=== PATIENT | male | born 1960 | race Caucasian/White ===

== ENCOUNTER 2018-01-24 07:12 | Outpatient (CLI) | payer MEDICARE ==
--- NOTE | 2018-01-24 09:37 | ULT ---
ULTRASOUND LIVER WITH DOPPLER: HISTORY: Hepatitis B. FINDINGS: The liver demonstrates increased echogenicity concerning for fatty infiltration. No focal mass or in trahepatic ductal dilatation is seen. No gallstones or gallbladder wall thickening, or pericholecyst ic fluid is identified. The pancreas is not visualized due to overlying bowel gas. The common duct measures 4 mm in diameter. The spleen measures 11.6 cm in length and is normal. No free fluid is se en in the right upper quadrant. There is normal flow and spectral waveforms in the hepatic, portal, and splenic vasculature. IMPRESSION: 1. Fatty liver. 2. No evidence of cholelithiasis. POS: [facility]
== END 2018-01-24 07:13 | disposition home or self-care (01) ==
LOC: ULT 07:12
PROVIDERS: ATTEND Internal Medicine Gastroenterology
DX: B19.10 Unspecified viral hepatitis B without hepatic coma (principal); K76.0 Fatty (change of) liver, not elsewhere classified
CPT/HCPCS: 76705

== ENCOUNTER 2021-06-18 14:40 | Outpatient (CLI) | payer MEDICARE | END 2021-06-18 14:41 | disposition home or self-care (01) | LOC: BICULT 14:40 | PROVIDERS: ATTEND Internal Medicine Infectious Disease | DX: B18.1 Chronic viral hepatitis B without delta-agent (principal); K76.0 Fatty (change of) liver, not elsewhere classified | CPT/HCPCS: 76705 ==

== ENCOUNTER 2022-07-14 10:39 | Outpatient (CLI) | payer MEDICARE | END 2022-07-14 10:40 | disposition home or self-care (01) | LOC: BICULT 10:39 | PROVIDERS: ATTEND Physician Assistant Medical | DX: R13.10 Dysphagia, unspecified (principal); R10.13 Epigastric pain; B19.10 Unspecified viral hepatitis B without hepatic coma; Z86.010 Personal history of colon polyps; N28.1 Cyst of kidney, acquired; R16.1 Splenomegaly, not elsewhere classified | CPT/HCPCS: 76700 ==